=== PATIENT | male | born 1945 | race Caucasian/White ===

== ENCOUNTER 2016-09-11 12:32 | Emergency (ER) | payer MEDICARE, BC ==
--- NOTE | 2016-09-11 13:17 | RAD ---
RIGHT SHOULDER 3 VIEWS: HISTORY: Right shoulder pain. 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 No fracture, dislocation, or bony de struction is seen. POS: [facility]
== END 2016-09-11 13:25 | disposition home or self-care (01) ==
LOC: MADERS 12:32
DX: M75.41 Impingement syndrome of right shoulder (principal); H92.03 Otalgia, bilateral; E78.5 Hyperlipidemia, unspecified; I10 Essential (primary) hypertension; F17.210 Nicotine dependence, cigarettes, uncomplicated

== ENCOUNTER 2017-06-22 13:28 | Emergency (ER) | payer MEDICARE, BC ==
[2017-06-22] MEDS ORDERED: HYDROcodone/Acetaminophen 5/325 mg Tablet ONE (14:29)
[2017-06-22] MEDS ORDERED: Benzonatate 100 MG CAP ONE (14:30)
[2017-06-22] MEDS ORDERED: Phenylephrine 0.25% Nasal Spray 15 ML BOT ONE (14:30)
[2017-06-22] MEDS ORDERED: Dexamethasone 4 MG TAB ONE (14:30)
[2017-06-22] MEDS ORDERED: Amoxicillin/Potassium Clav 875 MG TAB ONE (14:30)
--- NOTE | 2017-06-22 15:43 | RAD ---
PA AND LATERAL CHEST: History: Cough. FINDINGS: No focal consolidation. Heart size and pulmonary vasculature is within normal limits. No acute osseou s abnormality is evident. IMPRESSION: No acute cardiopulmonary abnormality. POS: [facility]
== END 2017-06-22 14:30 | disposition home or self-care (01) ==
LOC: MADERS 13:28
DX: J20.9 Acute bronchitis, unspecified (principal); I10 Essential (primary) hypertension; F17.210 Nicotine dependence, cigarettes, uncomplicated; Z79.82 Long term (current) use of aspirin; Z79.899 Other long term (current) drug therapy
CPT/HCPCS: 71046; J8540

== ENCOUNTER 2017-10-22 10:13 | Emergency (ER) | payer MEDICARE, BC ==
[2017-10-22] MEDS ORDERED: HYDROcodone/Acetaminophen 5/325 mg Tablet ONE (10:35)
[2017-10-22] MEDS ORDERED: Benzonatate 100 MG CAP ONE (10:36)
[2017-10-22] MEDS ORDERED: Amoxicillin/Potassium Clav 875 MG TAB ONE (10:36)
== END 2017-10-22 10:55 | disposition home or self-care (01) ==
LOC: MADERS 10:13
DX: J01.90 Acute sinusitis, unspecified (principal); E78.5 Hyperlipidemia, unspecified; I10 Essential (primary) hypertension; F17.210 Nicotine dependence, cigarettes, uncomplicated; Z79.899 Other long term (current) drug therapy
CPT/HCPCS: 99283

== ENCOUNTER 2017-10-28 16:01 | Outpatient (CLI) | payer MEDICARE, BC ==
--- NOTE | 2017-10-28 16:42 | RAD ---
PA AND LATERAL OF THE CHEST: 10/28/17 INDICATION: Cough. COMPARISON: Prior exam dated 06/22/17. FINDINGS: The lungs are clear. The cardiomediastinal silhouette is within normal limits. No acute osseous abnor mality is evident. IMPRESSION: No acute cardiopulmonary abnormality. POS: [facility]
== END 2017-10-28 16:02 | disposition home or self-care (01) ==
LOC: MADRAD 16:01
PROVIDERS: ATTEND Family Medicine
DX: R05 Cough (principal)
CPT/HCPCS: 71046

== ENCOUNTER 2018-03-14 09:51 | Emergency (ER) | payer MEDICARE, BC ==
[2018-03-14] MEDS ORDERED: cefTRIAXone\\ROCEPHIN 1 GM VIAL ONE (11:26)
[2018-03-14] MEDS ORDERED: Dexamethasone 4 MG TAB ONE (11:26)
[2018-03-14] MEDS ORDERED: Lidocaine 1% 20 ML MDV ONE (11:26)
[2018-03-14] MEDS ORDERED: Benzonatate 100 MG CAP ONE (11:26)
[2018-03-14] MEDS ORDERED: HYDROcodone/Acetaminophen 5/325 mg Tablet ONE (11:26)
--- NOTE | 2018-03-14 12:11 | RAD ---
CHEST 2 VIEWS: History Cough. COMPARISON: Radiograph 10/28/2017. FINDINGS: Lungs without airspace consolidation, pneumothorax, or effusion. Cardiac silhouette is similar. No acute osseous abnormality. IMPRESSION: No acute intrathoracic abnormality. POS: [facility]
== END 2018-03-14 11:55 | disposition home or self-care (01) ==
LOC: MADERS 09:51
DX: J40 Bronchitis, not specified as acute or chronic (principal); B96.89 Other specified bacterial agents as the cause of diseases classified elsewhere; J02.9 Acute pharyngitis, unspecified; E78.5 Hyperlipidemia, unspecified; I10 Essential (primary) hypertension; F17.210 Nicotine dependence, cigarettes, uncomplicated; Z79.899 Other long term (current) drug therapy
CPT/HCPCS: 71046; 87804; 96372; J0696; J2001; J8540

== ENCOUNTER 2019-03-15 16:09 | Outpatient (CLI) | payer MEDICARE, BC ==
--- NOTE | 2019-03-15 16:33 | RAD ---
XR Shoulder Rt 3 View STANDARD HISTORY: Shoulder pain, no trauma. COMPARISON: None. FINDINGS: There are moderate arthritic changes of the AC joint, the acromion is laterally downsloping . Mild arthritic changes of the glenohumeral joint space are seen. There is no evidence of fracture. IMPRESSION: Mild arthritic changes of the shoulder.
--- NOTE | 2019-03-15 16:34 | CT ---
CT Brain WO Con HISTORY: Headache. COMPARISON: None. FINDINGS: There is a mild ventricular and sulcal prominence. There is no signs of intracerebral hemor rhage or extra-axial fluid collections. The mastoid air cells and visualized sinuses are clear. IMPRESSION: No acute intracranial abnormalities.
== END 2019-03-15 16:10 | disposition home or self-care (01) ==
LOC: MADCT 16:09
PROVIDERS: ATTEND Family Medicine
DX: M25.511 Pain in right shoulder (principal); R51 Headache; M19.011 Primary osteoarthritis, right shoulder
CPT/HCPCS: 70450

== ENCOUNTER 2020-02-04 08:31 | Emergency (ER) | payer MEDICARE, BC | END 2020-02-04 09:00 | disposition home or self-care (01) | LOC: MADERS 08:31 | DX: S50.862A Insect bite (nonvenomous) of left forearm, initial encounter (principal); S50.861A Insect bite (nonvenomous) of right forearm, initial encounter; E78.5 Hyperlipidemia, unspecified; E78.00 Pure hypercholesterolemia, unspecified; I10 Essential (primary) hypertension; F17.210 Nicotine dependence, cigarettes, uncomplicated; W57.XXXA Bitten or stung by nonvenomous insect and other nonvenomous arthropods, initial encounter | CPT/HCPCS: 99406 ==

== ENCOUNTER 2020-09-15 15:50 | Emergency (ER) | payer MEDICARE, BC ==
[2020-09-15 16:51] LABS: Anisocytosis SLIGHT = 6-15 cells (100X) (0-5/hpf); Band 3 % (5-11); Hemoglobin 15.1 g/dL (14.0-18.0); Lymphocytes 34 % (21-51); MDiff Complete? YES; Macrocytosis SLIGHT = 6-15 cells (100X) (0-5/hpf); Mean Corpuscular HGB CONC 31.5 g/dL (32.0-36.0); Mean Corpuscular Hemoglobin 31.9 pg (27.0-31.0); Mean Corpuscular Volume 101.4 fL (78.0-98.0); Mean Platelet Volume 9.1 fL (7.4-10.4); Monocytes 8 % (0-10); Neutrophil 55 % (42-75); Platelet Count 252 thou/uL (130-400); Platelet Morphology Comment Appears Adequate; RBC Distribution Width 11.4 % (11.5-14.5); Red Blood Cell (RBC) Count 4.72 mill/uL (4.70-6.10); White Blood Cell (WBC) Count 7.5 thou/uL (4.8-10.8)
[2020-09-15 16:56] LABS: ALT (SGPT) 30 U/L (8-55); AST (SGOT) 21 U/L (5-34); Albumin 4.1 g/dL (3.4-4.8); Alkaline Phosphatase 76 U/L (40-110); Anion Gap 16 mmol/L (10-20); BUN (Urea Nitrogen) 16 mg/dL (8.4-25.7); Bilirubin, Total 0.3 mg/dL (0.2-1.2); CK (CPK) 82 U/L (30-200); Calc. Creatinine Clearance 0 mL/min (70-130); Calcium 9.1 mg/dL (7.8-10.44); Carbon Dioxide 19 mmol/L (23-31); Chloride 107 mmol/L (98-107); Glucose 92 mg/dL (83-110); Lipase 22 U/L (8-78); Potassium 4.4 mmol/L (3.5-5.1); Protein, Total 7.1 g/dL (5.8-8.1); Sodium 138 mmol/L (136-145)
[2020-09-15] MEDS ORDERED: Aspirin Chewable 81 MG TAB ONE (16:59)
[2020-09-15] MEDS ORDERED: Acetaminophen 500 MG TAB ONE (16:59)
[2020-09-15] MEDS ORDERED: Azithromycin 500 MG VIAL ONE (17:54)
[2020-09-15] MEDS ORDERED: predniSONE 20 MG TAB ONE (17:54)
[2020-09-15] MEDS ORDERED: Azithromycin 250 MG TAB ONE (17:55)
[2020-09-16 06:09] LABS: SARS-CoV-2 NAA Rapid Test Not Detected (NotDetected)
== END 2020-09-15 18:00 | disposition home or self-care (01) ==
LOC: MADERS 15:50
DX: R10.13 Epigastric pain (principal); J00 Acute nasopharyngitis [common cold]
CPT/HCPCS: 71045; 80053; 82550; 83690; 84484; 85025; 85379; 93005; 99284; U0002; 87635; J0456; J7512; U0003; U0005

== ENCOUNTER 2021-02-01 07:46 | Outpatient (CLI) | payer MEDICARE, BC ==
[2021-02-01 08:33] LABS: #Basophils 0.1 thou/uL (0.0-0.2); #Eosinphils 0.1 thou/uL (0.0-0.7); #Lymphocytes 1.7 thou/uL (1.20-3.40); #Monocytes 0.6 thou/uL (0.11-0.59); #Neutrophils 5.7 thou/uL (1.40-6.50); %Basophils 0.7 % (0.0-1.0); %Eosinophils 1.5 % (0.0-10.0); %Lymphocytes 20.9 % (21.0-51.0); %Monocytes 7.7 % (0.0-10.0); %Neutrophils 69.3 % (42.0-75.0); Hemoglobin 15.8 g/dL (14.0-18.0); Mean Corpuscular HGB CONC 31.4 g/dL (32.0-36.0); Mean Corpuscular Hemoglobin 31.9 pg (27.0-31.0); Mean Corpuscular Volume 101.5 fL (78.0-98.0); Platelet Count 241 thou/uL (130-400); RBC Distribution Width 11.4 % (11.5-14.5); Red Blood Cell (RBC) Count 4.95 mill/uL (4.70-6.10); White Blood Cell (WBC) Count 8.2 thou/uL (4.8-10.8)
[2021-02-01 09:19] LABS: ALT (SGPT) 23 U/L (8-55); AST (SGOT) 14 U/L (5-34); Albumin 3.9 g/dL (3.4-4.8); Alkaline Phosphatase 82 U/L (40-110); Anion Gap 13 mmol/L (10-20); BUN (Urea Nitrogen) 16 mg/dL (8.4-25.7); Bilirubin, Total 0.5 mg/dL (0.2-1.2); Calc. Creatinine Clearance 0 mL/min (70-130); Calcium 9.3 mg/dL (7.8-10.44); Carbon Dioxide 24 mmol/L (23-31); Cardiac Risk 3.8 (Less than 4.5); Chloride 108 mmol/L (98-107); Cholesterol 114 mg/dl (< 200 Desired); Globulin 2.6 g/dL (2.4-3.5); Glucose 98 mg/dL (83-110); HDL Cholesterol 30 mg/dL (>60 Neg Risk); LDL Cholesterol, Calculated 48 mg/dL; Potassium 4.4 mmol/L (3.5-5.1); Protein, Total 6.5 g/dL (5.8-8.1); Sodium 141 mmol/L (136-145); Triglycerides 179 mg/dL (Less than 150)
== END 2021-02-01 07:47 | disposition home or self-care (01) ==
LOC: MADLAB 07:46
PROVIDERS: ATTEND Family Medicine
DX: M25.551 Pain in right hip (principal); I10 Essential (primary) hypertension; E78.2 Mixed hyperlipidemia; M16.11 Unilateral primary osteoarthritis, right hip
CPT/HCPCS: 36415; 80053; 80061; 84443; 85025

== ENCOUNTER 2021-03-23 16:07 | Emergency (ER) | payer MEDICARE, BC | END 2021-03-23 17:05 | disposition home or self-care (01) | LOC: MADERS 16:07 | DX: J44.9 Chronic obstructive pulmonary disease, unspecified (principal); I10 Essential (primary) hypertension; E78.5 Hyperlipidemia, unspecified; E78.00 Pure hypercholesterolemia, unspecified; F17.210 Nicotine dependence, cigarettes, uncomplicated | CPT/HCPCS: 96372; 99406; J1040 ==

== ENCOUNTER 2021-06-22 21:29 | Emergency (ER) | payer MEDICARE, BC ==
[~2021-06-22 21:29] MED LIST: Sodium Chloride 0.9% 100 ML BAG ONE
[2021-06-22 23:50] LABS: #Basophils 0.1 thou/uL (0.0-0.2); #Lymphocytes 1.4 thou/uL (1.20-3.40); #Monocytes 0.8 thou/uL (0.11-0.59); #Neutrophils 14.7 thou/uL (1.40-6.50); %Basophils 0.5 % (0.0-1.0); %Eosinophils 0.1 % (0.0-10.0); %Lymphocytes 8.3 % (21.0-51.0); %Monocytes 4.7 % (0.0-10.0); %Neutrophils 86.4 % (42.0-75.0); Hemoglobin 16.5 g/dL (14.0-18.0); Mean Corpuscular HGB CONC 34.1 g/dL (32.0-36.0); Mean Corpuscular Hemoglobin 32.5 pg (27.0-31.0); Mean Corpuscular Volume 95.2 fL (78.0-98.0); Mean Platelet Volume 7.6 fL (7.4-10.4); Platelet Count 247 thou/uL (130-400); RBC Distribution Width 11.2 % (11.5-14.5); Red Blood Cell (RBC) Count 5.08 mill/uL (4.70-6.10)
[2021-06-22] MEDS ORDERED: Benzonatate 100 MG CAP ONE (23:57)
[2021-06-22] MEDS ORDERED: Azithromycin 500 MG VIAL ONE (23:57)
[2021-06-22] MEDS ORDERED: cefTRIAXone\\ROCEPHIN 2 GM VIAL ONE (23:57)
[2021-06-22] MEDS ORDERED: Sodium Chloride 0.9% 1,000 ML ONE (23:57)
[2021-06-23 00:09] LABS: ALT (SGPT) 25 U/L (8-55); AST (SGOT) 15 U/L (5-34); Albumin 4.3 g/dL (3.4-4.8); Alkaline Phosphatase 75 U/L (40-110); Anion Gap 18 mmol/L (10-20); BUN (Urea Nitrogen) 16 mg/dL (8.4-25.7); Bilirubin, Total 1.2 mg/dL (0.2-1.2); Calc. Creatinine Clearance 0 mL/min (70-130); Calcium 9.8 mg/dL (7.8-10.44); Carbon Dioxide 20 mmol/L (23-31); Chloride 103 mmol/L (98-107); Globulin 2.9 g/dL (2.4-3.5); Glucose 119 mg/dL (83-110); Potassium 3.5 mmol/L (3.5-5.1); Protein, Total 7.2 g/dL (5.8-8.1); Sodium 137 mmol/L (136-145)
[2021-06-23 00:38] LABS: SARS-CoV-2 NAA Rapid Test Not Detected (NotDetected)
== END 2021-06-23 02:35 | disposition home or self-care (01) ==
LOC: MADERS 21:29
DX: J18.9 Pneumonia, unspecified organism (principal); E78.5 Hyperlipidemia, unspecified; I10 Essential (primary) hypertension; F17.210 Nicotine dependence, cigarettes, uncomplicated; Z79.899 Other long term (current) drug therapy; Z79.82 Long term (current) use of aspirin; Z20.822 Contact with and (suspected) exposure to COVID-19
CPT/HCPCS: 0240U; 71045; 80053; 83605; 85025; 87040; 96365; 96366; 96368; J0456; J0696; J3490; J7050; J7620

== ENCOUNTER 2021-09-11 09:01 | Emergency (ER) | payer MEDICARE, BC ==
[2021-09-11] MEDS ORDERED: Albuterol 200 PUFF (6.7GM INHALER) ONE (10:00)
== END 2021-09-11 10:57 | disposition home or self-care (01) ==
LOC: MADERS 09:01
DX: R05.9 Cough, unspecified (principal); R51.9 Headache, unspecified; R07.81 Pleurodynia; J34.89 Other specified disorders of nose and nasal sinuses; E78.5 Hyperlipidemia, unspecified; E78.00 Pure hypercholesterolemia, unspecified; I10 Essential (primary) hypertension; F17.210 Nicotine dependence, cigarettes, uncomplicated; Z79.899 Other long term (current) drug therapy; Z79.82 Long term (current) use of aspirin
CPT/HCPCS: 71046

== ENCOUNTER 2021-12-26 10:36 | Emergency (ER) | payer MEDICARE, BC ==
[2021-12-26] MEDS ORDERED: Ketorolac Tromethamine 30 MG/ML VIAL ONE (12:53)
== END 2021-12-26 13:08 | disposition home or self-care (01) ==
LOC: MADERS 10:36
DX: S43.402A Unspecified sprain of left shoulder joint, initial encounter (principal); S46.002A Unspecified injury of muscle(s) and tendon(s) of the rotator cuff of left shoulder, initial encounter; I10 Essential (primary) hypertension; E78.00 Pure hypercholesterolemia, unspecified; F17.210 Nicotine dependence, cigarettes, uncomplicated; X50.9XXA Other and unspecified overexertion or strenuous movements or postures, initial encounter; Z79.82 Long term (current) use of aspirin; Z79.899 Other long term (current) drug therapy
CPT/HCPCS: 96372; J1885

== ENCOUNTER 2022-02-03 14:50 | Emergency (ER) | payer MEDICARE, BC ==
[2022-02-03] MEDS ORDERED: methylPREDNISolone Sod Succ/PF 125 MG/2 ML VIAL ONE (15:25)
[2022-02-03] MEDS ORDERED: Famotidine 20 MG TAB ONE (15:25)
== END 2022-02-03 15:53 | disposition home or self-care (01) ==
LOC: MADERS 14:50
DX: L50.9 Urticaria, unspecified (principal); I10 Essential (primary) hypertension; E78.00 Pure hypercholesterolemia, unspecified; F17.210 Nicotine dependence, cigarettes, uncomplicated; Z79.82 Long term (current) use of aspirin; Z79.899 Other long term (current) drug therapy
CPT/HCPCS: 96372; 99282; J2930

== ENCOUNTER 2022-05-13 12:32 | Emergency (ER) | payer BC, MEDICARE ==
[2022-05-13] MEDS ORDERED: Ipratropium/Albuterol 3 ML NEB ONE (13:38)
[2022-05-13] MEDS ORDERED: Dexamethasone 10 MG/ML VIAL ONE (14:22)
== END 2022-05-13 14:37 | disposition home or self-care (01) ==
LOC: MADERS 12:32
DX: J06.9 Acute upper respiratory infection, unspecified (principal); E78.00 Pure hypercholesterolemia, unspecified; I10 Essential (primary) hypertension; F17.210 Nicotine dependence, cigarettes, uncomplicated; Z20.822 Contact with and (suspected) exposure to COVID-19; Z79.82 Long term (current) use of aspirin
CPT/HCPCS: 71046; 87081; 87430; 87804 ×2; U0003; U0005; 96372; J1100; J7620

== ENCOUNTER 2022-05-16 10:21 | Emergency (ER) | payer MEDICARE | END 2022-05-16 11:40 | disposition home or self-care (01) | LOC: MADERS 10:21 | DX: J06.9 Acute upper respiratory infection, unspecified (principal); E78.00 Pure hypercholesterolemia, unspecified; I10 Essential (primary) hypertension; F17.210 Nicotine dependence, cigarettes, uncomplicated; Z79.899 Other long term (current) drug therapy; Z79.82 Long term (current) use of aspirin | CPT/HCPCS: 99283 ==

== ENCOUNTER 2022-06-20 08:12 | Emergency (ER) | payer MEDICARE, BC | END 2022-06-20 09:00 | disposition home or self-care (01) | LOC: MADERS 08:12 | DX: C44.91 Basal cell carcinoma of skin, unspecified (principal); E78.00 Pure hypercholesterolemia, unspecified; I10 Essential (primary) hypertension; F17.210 Nicotine dependence, cigarettes, uncomplicated | CPT/HCPCS: 99283 ==

== ENCOUNTER 2022-12-02 13:04 | Emergency (ER) | payer MEDICARE ==
[2022-12-02 14:03] LABS: #Basophils 0.1 thou/uL (0.0-0.2); #Eosinphils 0.1 thou/uL (0.0-0.7); #Lymphocytes 1.6 thou/uL (1.20-3.40); #Monocytes 0.6 thou/uL (0.11-0.59); #Neutrophils 3.9 thou/uL (1.40-6.50); %Basophils 0.9 % (0.0-1.0); %Eosinophils 1.6 % (0.0-10.0); %Lymphocytes 25.3 % (21.0-51.0); %Monocytes 9.8 % (0.0-10.0); %Neutrophils 62.3 % (42.0-75.0); Hematocrit 51.5 % (42.0-52.0); Hemoglobin 17.4 g/dL (14.0-18.0); Mean Corpuscular HGB CONC 33.7 g/dL (32.0-36.0); Mean Corpuscular Hemoglobin 33.7 pg (27.0-31.0); Mean Corpuscular Volume 99.9 fl (78.0-98.0); Mean Platelet Volume 10.7 fL (7.4-10.4); Platelet Count 238 10x3/uL (130-400); RBC Distribution Width 11.8 % (11.5-14.5); Red Blood Cell (RBC) Count 5.16 mill/uL (4.70-6.10); White Blood Cell (WBC) Count 6.3 10x3/uL (4.8-10.8)
[2022-12-02 14:11] LABS: Prothrombin Time 13.6 sec (12.0-14.7)
[2022-12-02 14:12] LABS: PTT 27.7 sec (22.9-36.1)
[2022-12-02 14:20] LABS: ALT (SGPT) 29 U/L (8-55); AST (SGOT) 17 U/L (5-34); Albumin 4.2 g/dL (3.4-4.8); Alkaline Phosphatase 82 U/L (40-110); Anion Gap 14 mmol/L (10-20); BUN (Urea Nitrogen) 17 mg/dL (8.4-25.7); Bilirubin, Total 0.6 mg/dL (0.2-1.2); Calc. Creatinine Clearance 0 mL/min (70-130); Calcium 9.6 mg/dL (7.8-10.44); Carbon Dioxide 24 mmol/L (23-31); Chloride 106 mmol/L (98-107); Estimated GFR 78; Glucose 86 mg/dL (83-110); Potassium 4.2 mmol/L (3.5-5.1); Protein, Total 7.2 g/dL (5.8-8.1); Sodium 140 mmol/L (136-145)
== END 2022-12-02 14:59 | disposition home or self-care (01) ==
LOC: MADERS 13:04
DX: S30.1XXA Contusion of abdominal wall, initial encounter (principal); I10 Essential (primary) hypertension; E78.00 Pure hypercholesterolemia, unspecified; F17.210 Nicotine dependence, cigarettes, uncomplicated; X58.XXXA Exposure to other specified factors, initial encounter
CPT/HCPCS: 80053; 85025; 85610; 85730; 99283

== ENCOUNTER 2024-11-30 09:20 | Emergency (ER) | payer MEDICARE | END 2024-11-30 11:25 | disposition home or self-care (01) | LOC: MADERS 09:20 | DX: M54.50 Low back pain, unspecified (principal); I71.40 Abdominal aortic aneurysm, without rupture, unspecified; R93.89 Abnormal findings on diagnostic imaging of other specified body structures; I10 Essential (primary) hypertension; E78.5 Hyperlipidemia, unspecified; F17.210 Nicotine dependence, cigarettes, uncomplicated; Z86.79 Personal history of other diseases of the circulatory system; Z79.82 Long term (current) use of aspirin; Z79.899 Other long term (current) drug therapy | CPT/HCPCS: 72131; 74176 ==

== ENCOUNTER 2025-03-14 12:07 | Emergency (ER) | payer MEDICARE ==
[2025-03-14] MEDS ORDERED: Lidocaine 1% w/Epinephrine 1:100K 20 ML VIAL ONE (12:35)
== END 2025-03-14 13:00 | disposition home or self-care (01) ==
LOC: MADERS 12:07
DX: L72.3 Sebaceous cyst (principal); I10 Essential (primary) hypertension; F17.210 Nicotine dependence, cigarettes, uncomplicated; Z79.82 Long term (current) use of aspirin; Z79.899 Other long term (current) drug therapy
CPT/HCPCS: 10060

== ENCOUNTER 2025-03-26 10:25 | Emergency (ER) | payer MEDICARE ==
[2025-03-26] MEDS ORDERED: Oxymetazoline HCl 0.05% (30 ML BOT) ONE (11:07)
[2025-03-26] MEDS ORDERED: Albuterol 200 PUFF (6.7GM INHALER) ONE (11:07)
== END 2025-03-26 11:55 | disposition home or self-care (01) ==
LOC: MADERS 10:25
DX: J06.9 Acute upper respiratory infection, unspecified (principal); J20.9 Acute bronchitis, unspecified; K13.79 Other lesions of oral mucosa; I10 Essential (primary) hypertension; E78.5 Hyperlipidemia, unspecified; I71.9 Aortic aneurysm of unspecified site, without rupture; F17.210 Nicotine dependence, cigarettes, uncomplicated
CPT/HCPCS: 71046; 87428